=== PATIENT | male | born 1960 | race Caucasian/White ===

== ENCOUNTER 2018-09-01 08:19 | Observation (INO) | payer BC, OTHER ==
[2018-09-01] MEDS ORDERED: fentaNYL 100 MCG/2 ML SDV IVPUSH ONE (08:30)
--- NOTE | 2018-09-01 08:42 | EDM.PDOC ---
ED HPI GENERAL MEDICAL PROBLEM - General Chief Complaint: Chest Pain Stated Complaint: ER VISIT Time Seen by Provider: 09/01/18 08:20 Source of Information: Reports: Patient History Limitations: Reports: No Limitations - History of Present Illness INITIAL COMMENTS - FREE TEXT/NARRATIVE: Pt. presents to ER with complaints of chest pain without radiation to arms, neck , jaw, or back. States that he was walking at work at the onset of symptoms. Denies any strenuous activity. Heart history consists of chest pain with angiogram 1 year ago. States has "30% blockage" in unknown artery and radiofrequency ablation in the as well as HTN and dyslipidemia. No nausea or vomiting. No diaphoresis. He states that the discomfort is located in the mid chest. He did get a nitro that did not help with the pain by EMS. He was given baby aspirin. Onset: Today Onset Date: 09/01/18 Location: Reports: Chest Quality: Reports: Ache, Dull, Pressure Severity: Severe Context: Reports: Activity (walking). Denies: Exercise, Lifting, Trauma Treatments [employer]: Reports: Aspirin, IV/IO, Nitroglycerin Left Chest Pain Score (Numeric/FACES): 7 - Related Data Allergies Allergy/AdvReac Type Severity Reaction Status Date / Time No Known Allergies Allergy Verified 08/02/17 07:51 Home Meds: Home Meds Lisinopril/Hydrochlorothiazide [Lisinopril-Hctz 20-12.5 mg Tab] 1 each PO DAILY 08/02/17 [History] Rosuvastatin Calcium 20 mg PO BEDTIME 08/02/17 [History] Verapamil [Verelan] 180 mg PO DAILY 08/02/17 [History] Acetaminophen [Tylenol] 650 mg PO Q4H PRN tablet 08/03/17 [Rx] Past Medical History HEENT History: Reports: Hard of Hearing Other HEENT History: Deaf in right ear, wears eyeglasses Cardiovascular History: Reports: Afib (ablation in .), High Cholesterol, Hypertension Respiratory History: Reports: None. Denies: Asthma, COPD Gastrointestinal History: Reports: None. Denies: GERD, GI Bleed Genitourinary History: Reports: Renal Calculus Musculoskeletal History: Reports: None. Denies: Arthritis Other Musculoskeletal History: broke left wrist X 5years ago Oncologic (Cancer) History: Reports: Lymphoma (treated with chemotherapy, 12 years ago), Malignant Melanoma Dermatologic History: Reports: Melanoma - Infectious Disease History Infectious Disease History: Reports: Mumps - Past Surgical History HEENT Surgical History: Reports: Other (See Below) Other HEENT Surgeries/Procedures: tumor removed from back of neck. Cardiovascular Surgical History: Reports: Cardiac Ablation Male Surgical History: Reports: Renal Calculus Musculoskeletal Surgical History: Reports: Carpal Tunnel Social & Family History - Family History Family Medical History: Noncontributory Cardiac: Reports: CAD, [place] - Caffeine Use Caffeine Use: Reports: Coffee - Living Situation & Occupation Living situation: Reports: Occupation: Employed ED ROS GENERAL - Review of Systems Review Of Systems: See Below Constitutional: Reports: No Symptoms HEENT: Reports: No Symptoms Respiratory: Reports: No Symptoms Cardiovascular: Reports: Chest Pain, Blood Pressure Problem Endocrine: Reports: No Symptoms GI/Abdominal: Reports: No Symptoms : Reports: No Symptoms Musculoskeletal: Reports: No Symptoms Skin: Reports: No Symptoms Neurological: Reports: No Symptoms Psychiatric: Reports: No Symptoms Hematologic/Lymphatic: Reports: No Symptoms Immunologic: Reports: No Symptoms ED EXAM, GENERAL - Physical Exam Exam: See Below Exam Limited By: No Limitations General Appearance: Alert, WD/WN, No Apparent Distress Head: Atraumatic, Normocephalic Neck: Normal Inspection, Supple, Non-Tender, Full Range of Motion Respiratory/Chest: No Respiratory Distress, Lungs Clear, Normal Breath Sounds, No Accessory Muscle Use, Chest Non-Tender Cardiovascular: Normal Peripheral Pulses, Regular Rate, Rhythm, No Edema, No Gallop, No JVD, No Murmur, No Rub Peripheral Pulses: 4+: Radial (L) GI/Abdominal: Normal Bowel Sounds, Soft, Non-Tender, No Organomegaly, No Distention, No Abnormal Bruit, No Mass (Male) Exam: Deferred Rectal (Males) Exam: Deferred Back Exam: Normal Inspection, Full Range of Motion, NT Extremities: Normal Inspection, Normal Range of Motion, Non-Tender, No Pedal Edema, Normal Capillary Refill Neurological: Alert, Oriented, CN II-XII Intact, Normal Cognition, Normal Gait, Normal Reflexes, No Motor/Sensory Deficits Psychiatric: Normal Affect, Normal Mood Skin Exam: Warm, Dry, Intact, Normal Color, No Rash Lymphatic: No Adenopathy EKG INTERPRETATION Rhythm: NSR [place]: Normal P-Wave: Present QRS: Normal ST-T: Normal QT: Normal Course - Vital Signs Last Recorded V/S: Last Vital Signs Temp 36.9 C 09/01/18 08:20 Pulse 74 09/01/18 08:20 Resp 16 09/01/18 08:20 BP 102/59 L 09/01/18 08:20 Pulse Ox 96 09/01/18 08:20 - Orders/Labs/Meds Orders: Active Orders 24 hr Category Date Time Status Patient Status [ADT] Routine ADT 09/01/18 09:46 Active EKG 12 Lead [EKG Documentation Completion] [RC] STAT Care 09/01/18 09:20 Active EKG Documentation Completion [RC] STAT Care 09/01/18 08:26 Active Labs: Laboratory Tests 09/01/18 09/01/18 09/01/18 Range/Units 08:43 08:43 08:43 WBC 7.7 (4.0-10.0) x10^3/uL RBC 5.01 (4.5-6.0) x10^6/uL Hgb 15.1 (14.0-18.0) g/dL Hct 44.9 (40.0-52.0) % MCV 89.6 (78.0-93.0) fL MCH 30.1 (26.0-32.0) pg MCHC 33.6 (32.0-36.0) g/dL RDW Coeff of Nitesh 13.9 (10.0-15.0) % Plt Count 218 (130-400) x10^3/uL Neut % (Auto) 68.0 (50.0-80.0) % Lymph % (Auto) 19.4 L (25.0-50.0) % [place] % (Auto) 9.9 (2.0-11.0) % Eos % (Auto) 2.6 (0.0-4.0) % Baso % (Auto) 0.1 L (0.2-1.2) % PT 10.4 (9.6-11.4) SEC INR 1.0 L (2.0-3.5) D-Dimer, Quantitative 0.41 (<=0.58) mg/LFEU Sodium 144 (136-145) mmol/L Potassium 3.4 L (3.5-5.1) mmol/L Chloride 104 (98-107) mmol/L Carbon Dioxide 26 (21-32) mmol/L Anion Gap 17.4 (10-20) mmol/L BUN 20 H (7-18) mg/dL Creatinine 1.0 (0.70-1.30) mg/dL Est Cr Clr Drug Dosing TNP Estimated GFR (MDRD) > 60 Glucose 94 (74-106) mg/dL Calcium 8.8 (8.5-10.1) mg/dL Corrected Calcium 8.88 (8.5-10.1) mg/dL Phosphorus 2.3 L (2.6-4.7) mg/dL Magnesium 2.0 (1.8-2.4) mg/dL Total Bilirubin 0.6 (0.2-1.0) mg/dL AST 17 (15-37) U/L ALT 27 (16-63) U/L Alkaline Phosphatase 96 (46-116) U/L POC Troponin I (0.00-0.08) ng/mL C-Reactive Protein 0.4 (<=0.9) mg/dL Total Protein 7.7 (6.4-8.2) g/dL Albumin 3.9 (3.4-5.0) g/dL Globulin 3.8 Albumin/Globulin Ratio 1.03 TSH, Ultra Sensitive 6.616 H (0.358-3.74) uIU/mL 09/01/18 09/01/18 Range/Units 08:43 08:55 WBC (4.0-10.0) x10^3/uL RBC (4.5-6.0) x10^6/uL Hgb (14.0-18.0) g/dL Hct (40.0-52.0) % MCV (78.0-93.0) fL MCH (26.0-32.0) pg MCHC (32.0-36.0) g/dL RDW Coeff of Nitesh (10.0-15.0) % Plt Count (130-400) x10^3/uL Neut % (Auto) (50.0-80.0) % Lymph % (Auto) (25.0-50.0) % [place] % (Auto) (2.0-11.0) % Eos % (Auto) (0.0-4.0) % Baso % (Auto) (0.2-1.2) % PT (9.6-11.4) SEC INR (2.0-3.5) D-Dimer, Quantitative (<=0.58) mg/LFEU Sodium (136-145) mmol/L Potassium (3.5-5.1) mmol/L Chloride (98-107) mmol/L Carbon Dioxide (21-32) mmol/L Anion Gap (10-20) mmol/L BUN (7-18) mg/dL Creatinine (0.70-1.30) mg/dL Est Cr Clr Drug Dosing Estimated GFR (MDRD) Glucose (74-106) mg/dL Calcium (8.5-10.1) mg/dL Corrected Calcium (8.5-10.1) mg/dL Phosphorus (2.6-4.7) mg/dL Magnesium (1.8-2.4) mg/dL Total Bilirubin (0.2-1.0) mg/dL AST (15-37) U/L ALT (16-63) U/L Alkaline Phosphatase (46-116) U/L POC Troponin I 0.00 Cancelled (0.00-0.08) ng/mL C-Reactive Protein (<=0.9) mg/dL Total Protein (6.4-8.2) g/dL Albumin (3.4-5.0) g/dL Globulin Albumin/Globulin Ratio TSH, Ultra Sensitive (0.358-3.74) uIU/mL Meds: Medications Discontinued Medications Generic Name Dose Route Start Last Admin Trade Name Freq PRN Reason Stop Dose Admin Fentanyl 50 mcg 09/01/18 08:30 09/01/18 08:40 Sublimaze IVPUSH 09/01/18 08:31 50 mcg ONETIME ONE Administration Departure - Departure Time of Disposition: 10:00 Disposition: Refer to Observation Clinical Impression: Chest pain - Discharge Information Referrals: David Gray MD [Primary Care Provider] - Forms: ED Department Discharge - Problem List Review Problem List Initiated/Reviewed/Updated: Yes - My Orders Last 24 Hours: My Active Orders 09/01/18 08:26 EKG Documentation Completion [RC] STAT 09/01/18 09:20 EKG 12 Lead [EKG Documentation Completion] [RC] STAT 09/01/18 09:46 Patient Status [ADT] Routine - Assessment/Plan Last 24 Hours: My Active Orders 09/01/18 08:26 EKG Documentation Completion [RC] STAT 09/01/18 09:20 EKG 12 Lead [EKG Documentation Completion] [RC] STAT 09/01/18 09:46 Patient Status [ADT] Routine Plan: Pt. will be admitted observation. His med record was reviewed. He has been admitted for L shoulder and chest pain in the past in [place] and [place]. He is quite confused about his medical history. His troponin and EKG were trended during this visits and were negative. The discomfort seems atypical in nature. Nitro and fentanyl have not been of any benefit. We will trend troponin. Start lovenox for DVT prophylaxis. All questions were answered.
[2018-09-01 09:22] LABS: ANION GAP 17.4 mmol/L (10-20); CHLORIDE,CL 104 mmol/L (98-107); SODIUM,NA 144 mmol/L (136-145)
--- NOTE | 2018-09-01 09:35 | CR ---
[id number] RAD/RAD Chest PA or AP 1V EXAM: RAD Chest PA or AP 1V INDICATION: CHEST PAIN. COMPARISON: None. DISCUSSION: Cardiomediastinal silhouette is normal in size and contour. No infiltrate, effusion, pneumothorax, or edema. Calcified granuloma projects over the right midlung. IMPRESSION: No significant cardiopulmonary abnormality. Orlin Collins MD 09/01/18 0932 Thank you for allowing us to participate in the care of your patient.
[2018-09-01] MEDS ORDERED: Acetaminophen 325 MG Tab PO PRN (10:59)
[2018-09-01] MEDS ORDERED: LORazepam 1 MG Tab PO PRN (11:01)
[2018-09-01] MEDS ORDERED: Enoxaparin 40 MG/0.4 ML Syringe SUBCUT SCH (11:15)
[2018-09-01] MEDS ORDERED: HYDROmorphone 1 MG/ML Syringe IVPUSH ONE (14:10)
[2018-09-01] MEDS ORDERED: Iopamidol 612 MG/ML 100 ML Bottle IVPUSH ONE (15:33)
--- NOTE | 2018-09-01 16:51 | CT ---
[id number] CT/CTA Chest EXAM: CTA Chest CLINICAL DATA: CHEST PAIN. COMPARISON: Radiograph from today. FINDINGS: LUNGS: Calcified right upper lobe granuloma, as seen on radiograph from today. No suspicious parenchymal nodularity. No pneumonia, effusion, edema, or pneumothorax. HEART AND GREAT VESSELS: Thoracic aorta is normal in caliber. No dissection. Mild cardiomegaly. No pericardial effusion. Negative for pulmonary embolus. MEDIASTINUM AND LYMPHATICS: Scattered partially calcified right hilar lymph nodes. No enlargement by pathologic size criteria. UPPER ABDOMINAL ORGANS: Unremarkable. BONES: Scattered changes of spondylosis in the spine. No fracture or osseous lesion. IMPRESSION: Negative for pulmonary embolus or other acute findings in the chest. Changes of prior granulomatous disease in the right lung and hilar region. Orlin Collins MD 09/01/18 [id number] Thank you for allowing us to participate in the care of your patient.
[2018-09-01] MEDS ORDERED: Non-Formulary Medication 1 Each (Rosuvastatin Calcium [Rosuvastatin Calcium] 20 MG) PO SCH (20:00)
[2018-09-02] MEDS ORDERED: VERAPAMIL 180 MG PO SCH (08:00)
[2018-09-02] MEDS ORDERED: Hydrochlorothiazide 12.5 MG Cap PO SCH (08:00)
[2018-09-02] MEDS ORDERED: Lisinopril 20 MG Tab PO SCH (08:00)
--- NOTE | 2018-09-02 10:30 | PCM.DCSUM1 ---
Discharge Summary - Hospital Course Free Text/Narrative:: Pt. requests to be discharged. He was admitted for chest and L shoulder and arm pain. Please refer to H and P. He is continuing to experience the discomfort. He has had no improvement in the discomfort with nitro. He also was given some dilaudid but it caused the pain to become worse. Denies any shortness of breath. He rested throughout the afternoon. CT angiogram of the chest was performed due to continued pain but did not show any acute pathology. He serial troponin and EKGs were all negative. Again, he has had issues with shoulder and arm discomfort and has been hospitalized twice in the past year for it. He had a negative stress test during his last admission. Diagnosis: Stroke: No - Discharge Data Discharge Date: 09/01/18 Discharge Disposition: Home, Self-Care 01 Condition: Good - Discharge Diagnosis/Problem(s) (1) Atypical chest pain SNOMED Code(s): 141781290 ICD Code: R07.89 - OTHER CHEST PAIN Status: Acute - Patient Instructions Diet: Heart Healthy Diet Driving: Do Not Drive - Discharge Plan Home Medications: Home Meds Lisinopril/Hydrochlorothiazide [Lisinopril-Hctz 20-12.5 mg Tab] 1 each PO DAILY 08/02/17 [History] Rosuvastatin Calcium 20 mg PO BEDTIME 08/02/17 [History] Verapamil [Verelan] 180 mg PO DAILY 08/02/17 [History] Acetaminophen [Tylenol] 650 mg PO Q4H PRN tablet 08/03/17 [Rx] Forms: ED Department Discharge Referrals: David Gray MD [Primary Care Provider] - - Discharge Summary/Plan Comment DC Time >30 min.: Yes - General Info Date of Service: 09/02/18 Functional Status: Reports: Pain Controlled - Review of Systems General: Reports: No Symptoms HEENT: Reports: No Symptoms Pulmonary: Reports: No Symptoms Cardiovascular: Reports: Chest Pain Gastrointestinal: Reports: No Symptoms Genitourinary: Reports: No Symptoms Musculoskeletal: Reports: No Symptoms Skin: Reports: No Symptoms Neurological: Reports: No Symptoms Psychiatric: Reports: No Symptoms - Patient Data Vitals - Most Recent: Last Vital Signs Temp 36.2 C 09/01/18 10:53 Pulse 71 09/01/18 14:00 Resp 20 09/01/18 14:00 BP 104/47 L 09/01/18 14:00 Pulse Ox 98 09/01/18 14:00 Weight - Most Recent: 104.326 kg I&O - Last 24 hours: Intake & Output 09/01/18 09/02/18 09/02/18 22:59 06:59 14:59 Intake Total 240 Balance 240 Lab Results - Last 24 hrs: Laboratory Results - last 24 hr 09/01/18 Range/Units 15:33 Troponin I < 0.017 (<=0.056) ng/mL Med Orders - Current: Current Medications Discontinued Medications Acetaminophen (Tylenol) 650 mg PO Q4H PRN PRN Reason: Pain (mild 1-3) Last Admin: 09/01/18 11:24 Dose: 650 mg Enoxaparin Sodium (Lovenox) 40 mg SUBCUT DAILY [facility] Last Admin: 09/01/18 11:24 Dose: 40 mg Fentanyl (Sublimaze) 50 mcg IVPUSH ONETIME ONE Stop: 09/01/18 08:31 Last Admin: 09/01/18 08:40 Dose: 50 mcg Hydrochlorothiazide (Hydrochlorothiazide) 12.5 mg PO DAILY [facility] Hydromorphone HCl (Dilaudid) 1 mg IVPUSH STAT ONE Stop: 09/01/18 14:11 Last Admin: 09/01/18 14:22 Dose: 1 mg Iopamidol (Isovue-300 (61%)) 100 ml IVPUSH ONETIME ONE Stop: 09/01/18 15:34 Last Admin: 09/01/18 16:12 Dose: 100 ml Lisinopril (Prinivil) 20 mg PO DAILY [facility] Lorazepam (Ativan) 1 mg PO Q4H PRN PRN Reason: Anxiety Last Admin: 09/01/18 11:24 Dose: 1 mg Non-Formulary Medication (Rosuvastatin Calcium [Rosuvastatin Calcium]) 20 mg PO BEDTIME [facility] Non-Formulary Medication (Verapamil [Verelan]) 180 mg PO DAILY [facility] - Exam Quality Assessment: Reports: Supplemental Oxygen General: Reports: Alert, Oriented Neck: Reports: Supple Lungs: Reports: Clear to Auscultation, Normal Respiratory Effort Cardiovascular: Reports: Regular Rate, Regular Rhythm GI/Abdominal Exam: Normal Bowel Sounds, Soft, Non-Tender, No Organomegaly, No Distention, No Abnormal Bruit, No Mass (Male) Exam: Deferred Rectal (Males) Exam: Deferred Back Exam: Reports: Normal Inspection, Full Range of Motion Extremities: Normal Inspection, Normal Range of Motion, Non-Tender, No Pedal Edema, Normal Capillary Refill Skin: Reports: Warm, Dry, Intact Wound/Incisions: Reports: Healing Well Neurological: Reports: No New Focal Deficit Psy/Mental Status: Reports: Alert, Normal Affect, Normal Mood EKG INTERPRETATION Rhythm: NSR [place]: Normal P-Wave: Present QRS: Normal ST-T: Normal QT: Normal
== END 2018-09-01 18:15 | disposition home or self-care (01) ==
LOC: VM.ED 08:19 → UNDOADMOB 08:20 → VM.MS 08:20 → UNDOADMOB 09:46
PROVIDERS: ADMIT Physician Assistant; ATTEND Physician Assistant
DX: R07.89 Other chest pain (principal); I10 Essential (primary) hypertension; E78.00 Pure hypercholesterolemia, unspecified; J84.10 Pulmonary fibrosis, unspecified; Z79.899 Other long term (current) drug therapy
CPT/HCPCS: 36415; 71045; 71275; 80053; 83735; 84100; 84443; 84484; 85025; 85379; 85610; 86140; 93005; 96372; 96374; 96375; 99285; A9270; G0378; J1170; J1650; J3010; Q9967

== ENCOUNTER 2019-07-06 08:30 | Emergency (ER) | payer OTHER ==
--- NOTE | 2019-07-06 09:16 | CR ---
[id number] RAD/RAD Fingers Left EXAM: LEFT FINGERS 3 VIEWS INDICATION: CAUGHT IN ROLLER COMPARISON: None. DISCUSSION: Third digit soft tissue swelling. 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 No acute fracture or dislocation is identified. IMPRESSION: 1. Soft tissue swelling. No acute fracture is identified. Daniel Madison MD 07/06/19 0916 Thank you for allowing us to participate in the care of your patient.
--- NOTE | 2019-07-06 10:27 | EDM.PDOC ---
ED HPI GENERAL MEDICAL PROBLEM - General Chief Complaint: Upper Extremity Injury/Pain Stated Complaint: SMASHED LEFT HAND AT WORK Time Seen by Provider: 07/06/19 08:40 Source of Information: Reports: Patient History Limitations: Reports: No Limitations - History of Present Illness INITIAL COMMENTS - FREE TEXT/NARRATIVE: Pt. states that he got his finger stuck in a roller at work. Pt. states that he is experiencing discomfort and decreased ROM to the distal portion of the 3rd finger of L hand. Denies any injury elsewhere. Complains of some numbness to distal portion of the extremity. Onset: Today Onset Date: 07/06/19 Location: Reports: Lower Extremity, Left Left Finger-Middle Pain Score (Numeric/FACES): 5 - Related Data Allergies Allergy/AdvReac Type Severity Reaction Status Date / Time No Known Allergies Allergy Verified 07/06/19 08:42 Home Meds: Home Meds Lisinopril/Hydrochlorothiazide [Lisinopril-Hctz 20-12.5 mg Tab] 1 each PO DAILY 08/02/17 [History] Acetaminophen [Tylenol] 650 mg PO Q4H PRN tablet 08/03/17 [Rx] Carvedilol [Coreg] 3.125 mg PO BID 07/06/19 [History] Furosemide [Lasix] 40 mg PO DAILY 07/06/19 [History] Past Medical History HEENT History: Reports: Hard of Hearing Other HEENT History: Deaf in right ear, wears eyeglasses Cardiovascular History: Reports: Afib, High Cholesterol, Hypertension Respiratory History: Reports: None Gastrointestinal History: Reports: None Genitourinary History: Reports: Renal Calculus Musculoskeletal History: Reports: None Other Musculoskeletal History: broke left wrist X 5years ago Oncologic (Cancer) History: Reports: Lymphoma, Malignant Melanoma Dermatologic History: Reports: Melanoma - Infectious Disease History Infectious Disease History: Reports: Mumps - Past Surgical History HEENT Surgical History: Reports: Other (See Below) Other HEENT Surgeries/Procedures: tumor removed from back of neck. Cardiovascular Surgical History: Reports: Cardiac Ablation Male Surgical History: Reports: Renal Calculus Musculoskeletal Surgical History: Reports: Carpal Tunnel Social & Family History - Family History Family Medical History: Noncontributory Cardiac: Reports: CAD, [place] - Tobacco Use Smoking Status *Q: Unknown Ever Smoked - Caffeine Use Caffeine Use: Reports: Coffee, Soda - Living Situation & Occupation Living situation: Reports: Occupation: Employed Review of Systems - Review of Systems Review Of Systems: See Below Skin: Reports: No Symptoms, Other (3rd digit L hand, distal portion) ED EXAM, GENERAL - Physical Exam Exam: See Below Exam Limited By: No Limitations General Appearance: Alert, WD/WN, No Apparent Distress Extremities: Limited Range of Motion, Redness, Other (Tenderness and erythema to distal portion of the digit. No crepitus noted. CMS intact. No obvious deformity.) Course - Vital Signs Last Recorded V/S: Last Vital Signs Temp 36.2 C 07/06/19 08:35 Pulse 69 07/06/19 08:35 Resp 12 07/06/19 08:35 BP 125/78 07/06/19 08:35 Pulse Ox 95 07/06/19 08:35 - Radiology Interpretation Free Text/Narrative:: No obvious fracture noted. Departure - Departure Time of Disposition: 09:30 Disposition: Home, Self-Care 01 Clinical Impression: Contusion, Contusion of finger of left hand - Discharge Information Instructions: Contusion, [id number] Forms: ED Department Discharge Additional Instructions: Ice finger for 10-15 min every 1-2 hours Ibuprofen 200mg 3 tabs every 6 hours as needed for pain Recheck in clinic in 7-10 days if still having discomfort Please excuse from work today if needed due to work related injury. Sepsis Event Note - Evaluation Sepsis Screening Result: No Definite Risk - Focused Exam Vital Signs: Vital Signs Temp Pulse Resp BP Pulse Ox 07/06/19 08:35 36.2 C 69 12 125/78 95 Date Exam was Performed: 07/06/19 Time Exam was Performed: 10:22 - Assessment/Plan Plan: Ice finger for 10-15 min every 1-2 hours Ibuprofen 200mg 3 tabs every 6 hours as needed for pain Recheck in clinic in 7-10 days if still having discomfort Please excuse from work today if needed due to work related injury.
== END 2019-07-06 09:24 | disposition home or self-care (01) ==
LOC: VM.ED 08:30
DX: S60.032A Contusion of left middle finger without damage to nail, initial encounter (principal); I10 Essential (primary) hypertension; H91.91 Unspecified hearing loss, right ear; Z79.899 Other long term (current) drug therapy; W23.0XXA Caught, crushed, jammed, or pinched between moving objects, initial encounter; Y99.0 Civilian activity done for income or pay
CPT/HCPCS: 73140-F2; 99283-25